=== PATIENT | female | born 1990 | race Caucasian/White ===

== ENCOUNTER 2019-01-29 00:51 | Outpatient (CLI) | payer MEDICAID, SELFPAY ==
--- NOTE | 2019-01-29 | US_ITS ---
PROCEDURE: US OB <= 14 WEEKS FETUS CLINICAL INDICATION: Twenty-one weeks gestation with vaginal bleeding and pain COMPARISON: OB<[id number] US OB <= 14 weeks fetus from 12/12/2018 TECHNIQUE: FINDINGS: There is a single live fetus present in breech presentation. heart tones are present within FHR 181 beats per minute. The placenta is lateral in implantation and grade 1. No obvious previa or abruption. heart and body motion is noted. Average ultrasound age is 21 weeks and 3 days. The following parameters are obtained BPD 21 weeks 6 days, OFD 20 weeks 3 days, HC 20 weeks 1 day, AC 21 weeks 4 days, FL 21 weeks 5 days. The cervix is foreshortened at 2 cm. There is little amniotic fluid noted. The GIOVANNI was not obtained. IMPRESSION: Single live IUP in breech presentation with an average ultrasound age of 21 weeks and 3 days. Cervix is foreshortened. Placenta is posterior and lateral in implantation and grade 1. No previa or abruption. Oligohydramnios. THIS EXAM DOES NOT QUALIFY A 20WEEK ANATOMICAL COMPLETE ULTRASOUND. Dictated by: Tom Smith MD 01/29/2019 06:25 Signed by: <Electronically signed by Tom Smith MD in [place]> 01/29/2019 06:25
[2019-01-29 00:58] VITALS: BMI 22.8
[2019-01-29 02:17] VITALS: BMI 22.8
== END 2019-01-29 02:10 | disposition home or self-care (01) ==
LOC: OBOUT 00:53 → OB 00:55
PROVIDERS: Visit Provider Obstetrics & Gynecology
DX: O60.02 Preterm labor without delivery, second trimester (principal); Z3A.21 21 weeks gestation of pregnancy; R10.9 Unspecified abdominal pain; O26.859 Spotting complicating pregnancy, unspecified trimester
CPT/HCPCS: 76801